=== PATIENT | female | born 1970 | race Caucasian/White ===

== ENCOUNTER → 2021-07-29 | Outpatient (CLI) | payer BC, OTHER | LOC: KOH-I 14:46 | DX: S82.832D Other fracture of upper and lower end of left fibula, subsequent encounter for closed fracture with routine healing (principal) | CPT/HCPCS: 73610 ==

== ENCOUNTER → 2021-09-09 | Outpatient (CLI) | payer BC, OTHER | LOC: KOH-I 13:20 | DX: S82.832K Other fracture of upper and lower end of left fibula, subsequent encounter for closed fracture with nonunion (principal) | CPT/HCPCS: 73610 ==